=== PATIENT | male | born 1940 | race Caucasian/White ===

== ENCOUNTER → 2018-06-30 | Outpatient (CLI) | payer MEDICARE ==
--- NOTE | 2018-06-30 13:35 | RAD ---
EXAM: Left fourth finger, 3 views. HISTORY: Pain. COMPARISON: None. FINDINGS: 3 views of the left fourth finger are obtained. There is no fracture, dislocation or subluxation. There is no suspicious lytic coarse chronic osseous lesion. No radiodense foreign body is seen. IMPRESSION: No acute osseous finding. Electronically signed by: Amrita Baptiste MD (06/30/2018 1:32 PM) [facility]
== END | disposition home or self-care (01) ==
LOC: RAD 11:36
PROVIDERS: ATTEND Family Medicine
DX: M79.645 Pain in left finger(s) (principal); M79.642 Pain in left hand
CPT/HCPCS: 73140

== ENCOUNTER → 2018-07-10 | Outpatient (CLI) | payer MEDICARE ==
--- NOTE | 2018-07-10 16:38 | RAD ---
CHEST PA LATERAL Clinical indications: cough with fever and congestion Comparison: None available. Findings: Hyperinflation is seen consistent with COPD. Small bilateral posterior pleural effusions are seen. More prominent small to moderate-sized lateral right-sided profusion is seen within the costophrenic angle. Associated right lower lobe atelectasis or infiltrate. There is a nodule of the right lower lung zone measuring 12 mm. No pneumothorax is seen. The heart size and mediastinum and pulmonary vasculature both [place] are unremarkable. IMPRESSION: Bilateral pleural effusions right greater than left. Right lung base infiltrate or atelectasis. 12 mm nodule projected over the right lower lung zone. This could represent asymmetric nipple shadow. A repeat chest x-ray with nipple markers may be helpful for further evaluation. Electronically signed by: Ike Cabrera MD (07/10/2018 4:35 PM) [place] [id number]
== END | disposition home or self-care (01) ==
LOC: RAD 10:34
PROVIDERS: ATTEND Family Medicine
DX: J90 Pleural effusion, not elsewhere classified (principal); R91.1 Solitary pulmonary nodule
CPT/HCPCS: 71046

== ENCOUNTER → 2018-07-18 | Outpatient (CLI) | payer MEDICARE ==
--- NOTE | 2018-07-18 13:23 | RAD ---
Chest, 2 views, 07/18/2018: HISTORY: Follow-up nodule Comparison is made to a study from 07/10/2018. Nipple markers were placed as requested. The heart size is normal. There is calcific plaquing of the aorta. A coronary artery stent is noted. There are mild scattered parenchymal scars in the lungs. A dense nodule is present posteriorly in the right lower lobe, most likely a calcified granuloma. No pulmonary consolidation is seen. There is persistent blunting of the right lateral costophrenic angle suggesting pleural fluid versus scarring. No new pulmonary abnormality is seen. Moderate multilevel hypertrophic degenerative change is present in the spine. IMPRESSION: 1. Small dense nodule in the posterior aspect of the right lower lobe, most likely a granuloma. Comparison with older chest radiographs if available and/or radiographic follow-up is suggested to confirm stability. 2. Coronary artery disease. 3. Unchanged blunting of the right lateral costophrenic angle compatible with a small amount of pleural fluid versus scarring. Electronically signed by: Michael Velazco MD (07/18/2018 1:20 PM) [facility]
== END | disposition home or self-care (01) ==
LOC: RAD 11:20
PROVIDERS: ATTEND Family Medicine
DX: R91.1 Solitary pulmonary nodule (principal); I25.10 Atherosclerotic heart disease of native coronary artery without angina pectoris
CPT/HCPCS: 71046

== ENCOUNTER → 2019-02-26 | Outpatient (CLI) | payer MEDICARE, OTHER ==
--- NOTE | 2019-02-26 11:57 | RAD ---
EXAM: LOWER EXTREMITY ARTERIAL DOPPLER SONOGRAM WITH ANKLE-BRACHIAL INDICES (KERA). HISTORY: Lower extremity pain. Diabetes, arterial stenting. TECHNIQUE: Grayscale and Doppler sonographic evaluation of the lower extremities was performed and pressure readings were assessed. FINDINGS: There are biphasic waveforms throughout both lower extremities. There are no elevated velocities suggestive of focal stenosis. Plaquing is noted throughout. Right brachial pressure: 130 mmHg Left brachial pressure: 132 mmHg Right ankle pressure: 140 mmHg Right ankle KERA: 1.1 Left ankle pressure: 138 mmHg Left ankle KERA: 1.0 IMPRESSION: 1. Findings consistent with mildly flow-limiting stenosis proximal to both common femoral arteries. 2. Normal bilateral ankle-brachial indices. Electronically signed by: Geena López MD (02/26/2019 11:54 AM) [facility]
== END | disposition home or self-care (01) ==
LOC: US 10:22
PROVIDERS: ATTEND Family Medicine
DX: E11.51 Type 2 diabetes mellitus with diabetic peripheral angiopathy without gangrene (principal); I70.203 Unspecified atherosclerosis of native arteries of extremities, bilateral legs
CPT/HCPCS: 93922; 93925

== ENCOUNTER → 2019-03-12 | Outpatient (CLI) | payer MEDICARE, OTHER ==
[~2019-03-12] MED LIST: IOHEXOL 350 MG/ML 100 ML VIAL. IV ONE
--- NOTE | 2019-03-13 08:48 | RAD ---
EXAM: CTA abdomen, pelvis and lower extremities with and without contrast. HISTORY: Lower extremity pain and numbness. TECHNIQUE: CTA of the abdomen, pelvis and lower extremities was performed before and after the intravenous administration of iodinated contrast. Three-dimensional reconstructions were also performed. One or more of the following individualized dose reduction techniques were utilized for this examination: 1. Automated exposure control. 2. Adjustment of the mA and/or kV according to patient size. 3. Use of iterative reconstruction technique. COMPARISON: 02/26/2019. FINDINGS: Images of the lung bases reveal a calcified right lower lobe granuloma. There is mild dependent atelectasis bilaterally. Bone windows reveal no suspicious lesions. There is moderate to severe lumbar central canal stenosis. There are calcified granulomas in the spleen. Gallstones are noted. The liver, pancreas and adrenal glands are unremarkable. Renal cysts measure up to 3.3 cm on the left. There are no pathologically enlarged lymph nodes. The prostate has been resected. The appendix is not inflamed. There are postoperative changes in the left inguinal region. The celiac axis, superior mesenteric artery and inferior mesenteric artery are patent. There is a short segment dissection flap within the left proximal renal artery 8 mm distal to its origin. This results in only mild luminal narrowing. There is no significant renal artery stenosis bilaterally. There is a small infrarenal abdominal aortic aneurysm measuring 3.2 x 2.8 cm. There are moderate aortoiliac atherosclerotic calcifications diffusely. There is no common or external iliac stenosis. There is moderate to severe stenosis at the origin of the left internal iliac artery. Both common femoral arteries are patent with moderate atherosclerotic calcifications. There are stents within the distal superficial femoral arteries bilaterally. There is mild diffuse intrastent stenosis on the right. There is no clearly significant stenosis on the left. There is a small focal aneurysm along the right popliteal artery measuring 11 mm. It is mostly thrombosed. It results in mild stenosis. The left popliteal artery is moderately diseased with mild luminal narrowing proximally. The trifurcation vessels are incompletely opacified secondary to early contrast timing bilaterally. The posterior tibial arteries are the main runoff vessel bilaterally. The anterior tibial and peroneal arteries are relatively small bilaterally. Each vessel bilaterally reaches near the ankle. Patency of the dorsalis pedis and common plantar arteries cannot be assessed on this study. IMPRESSION: 1. Small infrarenal abdominal aortic aneurysm measuring 3.2 cm. 2. Bilateral distal superficial femoral artery stents are patent. There is mild intrastent stenosis on the right. 3. Bilateral popliteal stenosis is mild. 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 4. Early contrast timing limits assessment of the distal trifurcation vessels. The posterior tibial arteries are the main runoff vessels bilaterally. The anterior tibial and peroneal arteries are patent to at least near the ankle. The distal arteries are patent as seen on prior Doppler. The trifurcation arteries are mildly to moderately diseased diffusely. 5. A short segment dissection within the left proximal renal artery results in minimal luminal narrowing. 6. Cholelithiasis. Electronically signed by: Geena López MD (03/13/2019 8:45 AM) [facility]
== END | disposition home or self-care (01) ==
LOC: CT 09:17
PROVIDERS: ATTEND Physician Assistant
DX: I71.4 Abdominal aortic aneurysm, without rupture (principal); I70.0 Atherosclerosis of aorta; I70.8 Atherosclerosis of other arteries; J84.10 Pulmonary fibrosis, unspecified; J98.11 Atelectasis; M48.061 Spinal stenosis, lumbar region without neurogenic claudication; K80.20 Calculus of gallbladder without cholecystitis without obstruction; N28.1 Cyst of kidney, acquired; Z95.5 Presence of coronary angioplasty implant and graft
CPT/HCPCS: 75635; Q9967